=== PATIENT | female | born 1965 | race Caucasian/White ===

== ENCOUNTER → 2023-11-05 | Outpatient (CLI) | payer OTHER ==
[~2023-11-05] MED LIST: DOXY100 PO; PRED20 PO
== END | disposition home or self-care (01) ==
LOC: LAB SHORT 18:18
DX: R39.89 Other symptoms and signs involving the genitourinary system (principal)
CPT/HCPCS: 87086

== ENCOUNTER → 2023-11-26 | Outpatient (CLI) | payer OTHER ==
[2023-12-02 10:11] LABS: APTIMA MEDIA TYPE Unisex Swab; C. TRACHOMATIS BY TMA Negative (Negative); N. GONORRHOEAE BY TMA Negative (Negative); SPECIMEN SOURCE Vaginal
[2023-12-07 15:05] LABS: HPV HIGH RISK BY TMA Not Detected; HPV SOURCE Cervical
== END | disposition home or self-care (01) ==
LOC: LAB 18:05 → LAB SHORT 18:05
PROVIDERS: Family Medicine
DX: Z01.419 Encounter for gynecological examination (general) (routine) without abnormal findings (principal)
CPT/HCPCS: 87491; 87591

== ENCOUNTER 2024-02-15 10:44 | Day surgery (SDC) | payer OTHER ==
[~2024-02-15] VITALS: Ht 167.6 cm; Wt 87.8 kg
[2024-02-15] MEDS ORDERED: ALBU90OI INH (11:51)
[2024-02-15] MEDS ORDERED: AMLO5 PO (11:51)
[2024-02-15] MEDS ORDERED: ATOR40TA PO (11:51)
[2024-02-15] MEDS ORDERED: Aspir 8181 MG PO (11:51)
[2024-02-15] MEDS ORDERED: MELO7.5 (11:52)
[2024-02-15] MEDS ORDERED: LOSARTAN-HCTZ1 EACH PO (11:52)
[2024-02-15] MEDS ORDERED: MAGNESIUM OXID500 MG PO (11:52)
[2024-02-15] MEDS ORDERED: FISH OIL 1,0001 EA10 (11:53)
[2024-02-15] MEDS ORDERED: METF500 PO (11:53)
[2024-02-15] MEDS ORDERED: TIZA4 (11:53)
[2024-02-15] MEDS ORDERED: PROM25 PO (11:53)
[2024-02-15] MEDS ORDERED: OMEP20ER PO (11:53)
[2024-02-15] MEDS ORDERED: TRELEGY ELLIPT1 EACH IH (11:54)
[2024-02-15] MEDS ORDERED: ZOLP10 PO (11:54)
[2024-02-15] MEDS ORDERED: Lactated Ringer's 1,000 ML IV ONE ×2 (11:56→12:48)
[2024-02-15] MEDS ORDERED: propofoL 50 ML IV ONE (12:48)
[2024-02-15 13:46] VITALS: BP 117/83
== END 2024-02-15 13:40 | disposition home or self-care (01) ==
LOC: ORSCSDS 10:44
PROVIDERS: Specialist
PROC: 0DBN8ZX Excision of Sigmoid Colon, Via Natural or Artificial Opening Endoscopic, Diagnostic (ICD-10-PCS; principal; 2024-02-15 12:45)
PROC: 0DBM8ZX Excision of Descending Colon, Via Natural or Artificial Opening Endoscopic, Diagnostic (ICD-10-PCS; principal; 2024-02-15 12:45)
PROC: 0DBK8ZX Excision of Ascending Colon, Via Natural or Artificial Opening Endoscopic, Diagnostic (ICD-10-PCS; principal; 2024-02-15 12:45)
DX: Z12.11 Encounter for screening for malignant neoplasm of colon (principal); D12.4 Benign neoplasm of descending colon; D12.3 Benign neoplasm of transverse colon; D37.4 Neoplasm of uncertain behavior of colon; Z83.719 Family history of colon polyps, unspecified; K57.30 Diverticulosis of large intestine without perforation or abscess without bleeding; B19.10 Unspecified viral hepatitis B without hepatic coma; K59.00 Constipation, unspecified; K21.9 Gastro-esophageal reflux disease without esophagitis; E11.9 Type 2 diabetes mellitus without complications; M79.7 Fibromyalgia; Z79.84 Long term (current) use of oral hypoglycemic drugs; Z79.899 Other long term (current) drug therapy
CPT/HCPCS: 82947; 88305; J2704; J7120